=== PATIENT | female | born 2000 | race Caucasian/White ===

== ENCOUNTER 2019-12-03 22:55 | Inpatient (IN) ==
[2019-12-03] MEDS ORDERED: ACETAMINOPHEN 1,000 MG/100 ML VIAL IV STA (23:07)
[2019-12-03] MEDS ORDERED: SODIUM CHLORIDE 0.9% 1000ML 1,000 ML IV ONE (23:07)
[2019-12-03] MEDS ORDERED: PIPERACILL/TAZOBAC CONSULT ACTIVE PRN (23:13)
[2019-12-03] MEDS ORDERED: PIPERACILLIN/TAZOBACTAM 4.5 GM/120 ML BAG IV ONE (23:13)
--- NOTE | 2019-12-03 23:24 | Emergency Department Note ---
History of Present Illness General Chief complaint: Abdominal Pain Stated complaint: ABDOMINAL PAIN History of Present Illness Maximum Pain Intensity: 10 This 19-year-old presents to the ER complaining of abdominal pain for the past 3 days Location: Lower abdomen Quality: Painful Severity: Moderate Duration: 3 days Timing: Started 3 days ago Context: Symptoms got much worse and patient came in Modifying factors: better with nothing; worse with activity Patient states she had a ruptured ovarian cyst before. This feels different. Patient complains of fevers. Patient denies chest pain, dyspnea, cough, congestion, flulike illness, urinary symptoms. She still has her appendix. She was moved up here from [place] and is living with her uncle. Home Medications Home Medications Medication Instructions Recorded Confirmed Type No Known Home Medications 12/03/19 12/03/19 History Allergies Allergy/AdvReac Type Severity Reaction Status Date / Time No Known Allergies Allergy Unverified 12/03/19 23:29 Past Med/Surg History Medical History Ovarian cyst Surgical History No pertinent past surgical history Social History Smoking Status: Current every day smoker Tobacco Type: Cigarettes Preferred Language: Bulgarian Feels Safe at Home: Yes Review of Systems A total of 10 systems reviewed and were otherwise negative Physical Exam Vital Signs Vital Signs - 24 hr 12/03/19 22:58 12/04/19 00:11 12/04/19 00:26 Temperature 39.2 C H 37.5 C Temperature Source Oral Oral Pulse Rate 109 H Pulse Rate [Right Finger] 88 Pulse Rate from SpO2 Sensor Respiratory Rate 16 20 Blood Pressure 100/47 L Blood Pressure [Left Arm] 123/61 Blood Pressure Mean 64 Blood Pressure Mean [Left Arm] 81 Blood Pressure Position [Left Arm] Sitting Pulse Oximetry 97 99 Oxygen Delivery Method Room Air Room Air Sepsis Recent Fever Within 48 Hours Yes Sepsis New/Unexplained Change in Mental Status No Sepsis Action Taken by Nursing No Action Required 12/04/19 01:02 Temperature Temperature Source Pulse Rate 84 Pulse Rate [Right Finger] Pulse Rate from SpO2 Sensor 86 Respiratory Rate 16 Blood Pressure 107/43 L Blood Pressure [Left Arm] Blood Pressure Mean 67 Blood Pressure Mean [Left Arm] Blood Pressure Position [Left Arm] Pulse Oximetry 99 Oxygen Delivery Method Room Air Sepsis Recent Fever Within 48 Hours Sepsis New/Unexplained Change in Mental Status Sepsis Action Taken by Nursing VITALS: Vitals are noted on the nurse's note and reviewed by myself. Vital signs febrile. GENERAL: White female who appears in pain and ill-appearing. SKIN: The skin was without rashes, erythema, edema, or bruising. There is no tenting of the skin. Capillary reflex less than 2 seconds. HEAD: Normocephalic atraumatic. EARS: External auditory canals clear, tympanic membranes pearly hopkins without erythema or effusion bilaterally. EYES: Pupils equal round and reactive to light and accommodation. Conjunctivae without injection, sclerae without icterus. Extraocular movements intact. NOSE: Patent, turbinates without inflammation or discharge. No sinus tenderne ss. MOUTH: Mucous membranes mildly dry. Pharynx without erythema or exudate. Uvula midline. Airway patent. Tongue does not deviate. NECK: Supple without nuchal rigidity. No lymphadenopathy. No thyromegaly. Cervical spine is nontender. No JVD. HEART: Regular rate and rhythm LUNGS: Clear to auscultation bilaterally without wheezes, rales or rhonchi. No retractions or accessory muscle use. ABDOMEN: Positive bowel sounds x 4. Normal tympanic percussion. Soft, tender to palpation lower abdomen, without masses or organomegaly. Mendez sign negative. No guarding or rebound tenderness. No CVA tenderness exam: Yellow-white discharge in the vault, erythematous cervix, cultures take n and sent, CMT tenderness, right and next tenderness. Muffler Installer present MUSCULOSKELETAL: No muscle atrophy, erythema, or edema noted. NEURO: Patient was alert and oriented to person place and time. Normal sensation to light and sharp touch. No focal neurological deficits. Course Administered Medications Doxycycline Hyclate 100 mg/ (Dextrose) 110 mls @ 50 mls/hr IV NOW STA Stop: 12/04/19 02:33 Last Admin: 12/04/19 01:03 Dose: 50 mls/hr Documented by: [id number] Discontinued Medications Sodium Chloride (Nss 1000ml) 1,000 mls @ 999 mls/hr IV .[id number] ONE Stop: 12/04/19 00:07 Last Infusion: 12/04/19 00:20 Dose: 0 mls/hr Documented by: [id number] Admin: 12/03/19 23:26 Dose: 999 mls/hr Documented by: [id number] Acetaminophen (Ofirmev) 1,000 mg in 100 mls @ 400 mls/hr IV NOW STA Stop: 12/03/19 23:21 Last Infusion: 12/03/19 23:43 Dose: 0 mls/hr Documented by: [id number] Admin: 12/03/19 23:26 Dose: 400 mls/hr Documented by: [id number] Piperacillin Sod/Tazobactam Sod (Zosyn) 4.5 gm in 120 mls @ 240 mls/hr IV NOW ONE Stop: 12/03/19 23:42 Last Infusion: 12/04/19 00:34 Dose: 0 mls/hr Documented by: [id number] Admin: 12/04/19 00:00 Dose: 240 mls/hr Documented by: [id number] Ioversol (Ioversol 100ml) 91 ml IV ONCE ONE Stop: 12/03/19 23:41 Last Admin: 12/03/19 23:40 Dose: 1 ml Documented by: [id number] Medical Decision Making Medical Records Attestation: I reviewed the patient's medical records. Home Medications Current Medication List: was personally reviewed by me Laboratory Data Attestation: I reviewed the patient's lab results. Result diagrams: 12/03/19 23:15 12/03/19 23:15 Lab Results 12/03/19 12/03/19 12/03/19 Range/Units 23:15 23:15 23:15 WBC 17.54 H (4.8-10.8) K/uL RBC 4.19 L (4.2-5.4) M/uL Hgb 6.4 L* (12.0-16.0) g/dL Hct 24.6 L (37-47) % MCV 58.7 L (80-100) fL MCH 15.3 L (25-34) pg MCHC 26.0 L (32-36) g/dL RDW Std Deviation 39.2 (36.4-46.3) fL RDW Coeff of Moises 18.4 H (11.5-14.5) % Plt Count 524 H (130-400) K/uL MPV 9.6 (7.4-10.4) fL Immature Gran % (Auto) 0.2 % Neut % (Auto) 85.8 % Lymph % (Auto) 7.5 % [place] % (Auto) 6.2 % Eos % (Auto) 0.1 % Baso % (Auto) 0.2 % Neut # (Auto) 15.06 H (1.4-6.5) K/uL Lymph # (Auto) 1.31 (1.2-3.4) K/uL [place] # (Auto) 1.09 H (0.11-0.59) K/uL Eos # (Auto) 0.01 (0-0.5) K/uL Baso # (Auto) 0.03 (0-0.2) K/uL Immature Gran # (Auto) 0.04 H (0.00-0.02) K/uL Hypochromasia Present Microcytosis Present PT 12.3 H (9.0-12.0) Seconds INR 1.2 H (0.9-1.1) APTT 28.2 (21.0-31.0) Seconds PTT Ratio 1.0 Sodium 140 (136-145) mmol/L Potassium 3.5 (3.5-5.1) mmol/L Chloride 109 H (98-107) mmol/L Carbon Dioxide 23 (21-32) mmol/L Anion Gap 8.0 (3-11) BUN 11 (7-18) mg/dl Creatinine 0.84 (0.6-1.2) mg/dl Est Cr Clr Drug Dosing 110.7 ml/min Est GFR ( Amer) 115.1 Est GFR (Non-Af Amer) 99.4 BUN/Creatinine Ratio 13.5 (10-20) Glucose 112 H (70-99) mg/dl Lactate (0.4-2.0) mmol/L Calcium 8.9 (8.5-10.1) mg/dl Magnesium 1.7 L (1.8-2.4) mg/dl Total Bilirubin 0.4 (0.2-1) mg/dl AST 9 L (15-37) U/L ALT 11 L (12-78) U/L Alkaline Phosphatase 66 (45-117) U/L Total Protein 7.3 (6.4-8.2) gm/dl Albumin 3.6 (3.4-5.0) gm/dl Globulin 3.7 (2.5-4.0) gm/dl Albumin/Globulin Ratio 1.0 (0.9-2) Urine Color Urine Appearance (Clear) Urine pH (4.5-7.5) Ur Specific [place] (1.000-1.030) Urine Protein (Negative) POC Urine Protein (Negative) Urine Glucose (UA) (Negative) POC Ur Glucose (UA) (Normal) Urine Ketones (Negative) POC Urine Ketones (Negative) Urine Blood (Negative) POC Urine Blood (Negative) Urine Nitrite (Negative) POC Urine Nitrite (Negative) Urine Bilirubin (Negative) Urine Urobilinogen (Negative) Ur Leukocyte Esterase (Negative) POC U Leukocyte Esteras (Negative) POC Ur Test (NEG) Urine Opiates Screen (Neg) Ur Methadone, Qual (Neg) Urine Barbiturates (Neg) Ur Phencyclidine (PCP) (Neg) U Amphetamin/Meth Scrn (Neg) MDMA (Ecstasy) Screen (Neg) U Benzodiazepines Scrn (Neg) Ur Cocaine Metabolite (Neg) U Marijuana (THC) Screen (Neg) Blood Type Antibody Screen Crossmatch 12/03/19 12/03/19 12/03/19 Range/Units 23:15 23:15 23:15 WBC (4.8-10.8) K/uL RBC (4.2-5.4) M/uL Hgb (12.0-16.0) g/dL Hct (37-47) % MCV (80-100) fL MCH (25-34) pg MCHC (32-36) g/dL RDW Std Deviation (36.4-46.3) fL RDW Coeff of Moises (11.5-14.5) % Plt Count (130-400) K/uL MPV (7.4-10.4) fL Immature Gran % (Auto) % Neut % (Auto) % Lymph % (Auto) % [place] % (Auto) % Eos % (Auto) % Baso % (Auto) % Neut # (Auto) (1.4-6.5) K/uL Lymph # (Auto) (1.2-3.4) K/uL [place] # (Auto) (0.11-0.59) K/uL Eos # (Auto) (0-0.5) K/uL Baso # (Auto) (0-0.2) K/uL Immature Gran # (Auto) (0.00-0.02) K/uL Hypochromasia Microcytosis PT (9.0-12.0) Seconds INR (0.9-1.1) APTT (21.0-31.0) Seconds PTT Ratio Sodium (136-145) mmol/L Potassium (3.5-5.1) mmol/L Chloride (98-107) mmol/L Carbon Dioxide (21-32) mmol/L Anion Gap (3-11) BUN (7-18) mg/dl Creatinine (0.6-1.2) mg/dl Est Cr Clr Drug Dosing ml/min Est GFR ( Amer) Est GFR (Non-Af Amer) BUN/Creatinine Ratio (10-20) Glucose (70-99) mg/dl Lactate 1.9 (0.4-2.0) mmol/L Calcium (8.5-10.1) mg/dl Magnesium (1.8-2.4) mg/dl Total Bilirubin (0.2-1) mg/dl AST (15-37) U/L ALT (12-78) U/L Alkaline Phosphatase (45-117) U/L Total Protein (6.4-8.2) gm/dl Albumin (3.4-5.0) gm/dl Globulin (2.5-4.0) gm/dl Albumin/Globulin Ratio (0.9-2) Urine Color Yellow Urine Appearance Clear (Clear) Urine pH 6.0 (4.5-7.5) Ur Specific [place] 1.027 (1.000-1.030) Urine Protein Negative (Negative) POC Urine Protein Trace H (Negative) Urine Glucose (UA) Negative (Negative) POC Ur Glucose (UA) Normal (Normal) Urine Ketones Negative (Negative) POC Urine Ketones 1+ (Small) H (Negative) Urine Blood Negative (Negative) POC Urine Blood Negative (Negative) Urine Nitrite Negative (Negative) POC Urine Nitrite Negative (Negative) Urine Bilirubin Negative (Negative) Urine Urobilinogen Negative (Negative) Ur Leukocyte Esterase Negative (Negative) POC U Leukocyte Esteras Trace H (Negative) POC Ur Test NEG (NEG) Urine Opiates Screen (Neg) Ur Methadone, Qual (Neg) Urine Barbiturates (Neg) Ur Phencyclidine (PCP) (Neg) U Amphetamin/Meth Scrn (Neg) MDMA (Ecstasy) Screen (Neg) U Benzodiazepines Scrn (Neg) Ur Cocaine Metabolite (Neg) U Marijuana (THC) Screen (Neg) Blood Type Antibody Screen Crossmatch 12/03/19 12/03/19 Range/Units 23:15 23:39 WBC (4.8-10.8) K/uL RBC (4.2-5.4) M/uL Hgb (12.0-16.0) g/dL Hct (37-47) % MCV (80-100) fL MCH (25-34) pg MCHC (32-36) g/dL RDW Std Deviation (36.4-46.3) fL RDW Coeff of Moises (11.5-14.5) % Plt Count (130-400) K/uL MPV (7.4-10.4) fL Immature Gran % (Auto) % Neut % (Auto) % Lymph % (Auto) % [place] % (Auto) % Eos % (Auto) % Baso % (Auto) % Neut # (Auto) (1.4-6.5) K/uL Lymph # (Auto) (1.2-3.4) K/uL [place] # (Auto) (0.11-0.59) K/uL Eos # (Auto) (0-0.5) K/uL Baso # (Auto) (0-0.2) K/uL Immature Gran # (Auto) (0.00-0.02) K/uL Hypochromasia Microcytosis PT (9.0-12.0) Seconds INR (0.9-1.1) APTT (21.0-31.0) Seconds PTT Ratio Sodium (136-145) mmol/L Potassium (3.5-5.1) mmol/L Chloride (98-107) mmol/L Carbon Dioxide (21-32) mmol/L Anion Gap (3-11) BUN (7-18) mg/dl Creatinine (0.6-1.2) mg/dl Est Cr Clr Drug Dosing ml/min Est GFR ( Amer) Est GFR (Non-Af Amer) BUN/Creatinine Ratio (10-20) Glucose (70-99) mg/dl Lactate (0.4-2.0) mmol/L Calcium (8.5-10.1) mg/dl Magnesium (1.8-2.4) mg/dl Total Bilirubin (0.2-1) mg/dl AST (15-37) U/L ALT (12-78) U/L Alkaline Phosphatase (45-117) U/L Total Protein (6.4-8.2) gm/dl Albumin (3.4-5.0) gm/dl Globulin (2.5-4.0) gm/dl Albumin/Globulin Ratio (0.9-2) Urine Color Urine Appearance (Clear) Urine pH (4.5-7.5) Ur Specific [place] (1.000-1.030) Urine Protein (Negative) POC Urine Protein (Negative) Urine Glucose (UA) (Negative) POC Ur Glucose (UA) (Normal) Urine Ketones (Negative) POC Urine Ketones (Negative) Urine Blood (Negative) POC Urine Blood (Negative) Urine Nitrite (Negative) POC Urine Nitrite (Negative) Urine Bilirubin (Negative) Urine Urobilinogen (Negative) Ur Leukocyte Esterase (Negative) POC U Leukocyte Esteras (Negative) POC Ur Test (NEG) Urine Opiates Screen Neg (Neg) Ur Methadone, Qual Neg (Neg) Urine Barbiturates Neg (Neg) Ur Phencyclidine (PCP) Neg (Neg) U Amphetamin/Meth Scrn Neg (Neg) MDMA (Ecstasy) Screen Neg (Neg) U Benzodiazepines Scrn Neg (Neg) Ur Cocaine Metabolite Neg (Neg) U Marijuana (THC) Screen Pos H (Neg) Blood Type O Positive Antibody Screen NEGATIVE Crossmatch See Detail Imaging Data Attestation: I personally reviewed and interpreted this imaging study as follows: MDM Narrative Prior records/ancillary studies reviewed. Triage Nursing notes reviewed. Additional history obtained from uncle. The patient's history was concerning for fever. Differential diagnosis: Etiologies such as intra-abdominal, ruptured appendix, pyelonephritis, PID, viral syndrome, otitis, pharyngitis, pneumonia, influenza, meningitis, urinary tract infection, sepsis, bacteremia, as well as others were entertained. Physical examination: As above ER treatment provided: An order was placed for continuous cardiac monitoring. The monitor shows a rate of 60-1 20 with a sinus rhythm. IV fluids, Tylenol, Zosyn, patient was typed and crossed and transfused 2 units of blood On reassessment the patient felt better. Diagnostics interpreted by me: ECG: Ordered for sepsis EKG: Normal sinus, normal intervals, no acute ST-T wave changes. Impression normal sinus rhythm interpreted by myself I think arrhythmia is unlikely. EKG shows normal sinus rhythm with no interval abnormalities such as QT prolongation or WPW. There are no findings to suggest Brugada syndrome. Cardiac monitoring in the emergency department reveals no tachycardic or bradycardic dysrhythmia. Hypertrophic cardiomyopathy was consider ed but there are no clear historical elements pointing toward this. EKG is not suggestive. The QRS voltage is not extremely large and there are no suggestive Q waves. The labs revealed low H&H. Patient was consented to blood transfusion. She was typed and crossmatched. She was written for 2 units of blood. Blood cultures pending Vaginal cultures pending, patient is requesting for HIV and syphilis testing. This is added on. Trichomonas is negative Imaging studies: CT ABDOMEN & PELVIS With Contrast: Normal appendix. Small volume complex free fluid within the pelvis. Most likely physiologic. No suspicious adnexal lesion. The pelvic small bowel is mildly thick-walled, likely reactive to the free fluid however nonspecific enteritis could cause a similar appearance. Mild splenomegaly. Liver, gallbladder, pancreas, and kidneys are unremarkable. Radiologist: Shashank Rosenberg MD US PELVIS: Transabdominal only images. Normal uterus and endometrial complex. Complex cystic lesion on the right ovary measuring 2.2 x 2.6 x 2.3 cm, corpus luteal cyst versus a hemorrhagic cyst. Follicular changes in the left ovary. No suspicious adnexal lesion on the left. Physiologic free fluid within the pelvis with internal complexity. Radiologist: Shashank Rosenberg MD Chest x-ray with no acute consolidation, pneumothorax or free air per my interpretation Consultation: A consultation was placed with OB Dr. Heller. The case was discussed and diagnostics were reviewed. He recommends medical admission and consult him. He agrees with antibiotics. I spoke with Dr. Holcomb and he will evaluate the patient for admission. The patient was evaluated in the ER for further treatment. This appears to be consistent with PID, sepsis and anemia. Patient is given 2 units of blood. She is given broad-spectrum antibiotics. I did verify the antibiotics with the pharmacist for PID coverage. Cultures are pending. Vaginal cultures are pending. Patient is requesting HIV and syphilis screen. These were ordered. She is agreeable to treatment plan of admission. By the evaluation outlined above emergent etiologies such as otitis, pharyngitis, pneumonia, meningitis, urinary tract infection, bacteremia, as well as others were deemed relatively unlikely. The pt informed about the findings as listed above. All questions were answered and pleased with the treatment. The chart was completed utilizing [employer] Speech voice recognition software. Grammatical errors, random word insertions, pronoun errors, and incomplete sentences are an occassional consequence of this system due to software limitations, ambient noise, and hardware issues. Any formal questions or concerns about the content, text, or information contained within the body of this dictation should be directly addressed to the physician speech pathologist assistant for clarification. Impression & Plan Acute pelvic inflammatory disease (PID), Sepsis, Anemia Discharge Plan Visit Data Chief Complaint: Abdominal Pain Stated Complaint: ABDOMINAL PAIN ED Provider: Norris Velez ED Midlevel Provider: Sil Oquendo Discharge Problem: Acute pelvic inflammatory disease (PID), Sepsis, Anemia Patient Disposition: Admitted As Inpatient Condition: Fair Forms Stand Alone Forms: [employer] Prescriptions Prescriptions: No Action No Known Home Medications RF: 0 Referrals Referrals: PCP,NO [Primary Care Provider] -
[2019-12-03] MEDS ORDERED: IOVERSOL 100ml IV ONE (23:40)
[2019-12-03 23:44] LABS: POC Urine Blood Negative (Negative); POC Urine Glucose Normal (Normal); POC Urine Ketones 1+ (Small) (Negative); POC Urine Leukocytes Trace (Negative); POC Urine Nitrite Negative (Negative); POC Urine Protein Trace (Negative)
[2019-12-03 23:46] LABS: Appearance Urine Clear (Clear); Bilirubin Urine Negative (Negative); Blood Urine Negative (Negative); Color Urine Yellow; Glucose Urine UA Negative (Negative); Ketones Urine Negative (Negative); Leukocyte Esterase Urine Negative (Negative); Nitrite Urine Negative (Negative); Protein Urine Negative (Negative); Specific Gravity Urine 1.027 (1.000-1.030); Urobilinogen Urine Negative (Negative)
[2019-12-03 23:49] LABS: INR 1.2 (0.9-1.1); Partial Thromboplastin Time 28.2 Seconds (21.0-31.0); Prothrombin Time 12.3 Seconds (9.0-12.0)
[2019-12-03 23:52] LABS: Hematocrit (blood only) 24.6 % (37-47); Hemoglobin 6.4 g/dL (12.0-16.0); Mean Corpuscular Hemoglobin 15.3 pg (25-34); Mean Corpuscular Volume 58.7 fL (80-100); Mean Platelet Volume 9.6 fL (7.4-10.4); Platelet Count 524 K/uL (130-400); RDW Coefficient of Variation 18.4 % (11.5-14.5); RDW Standard Deviation 39.2 fL (36.4-46.3); Red Blood Count 4.19 M/uL (4.2-5.4); White Blood Count 17.54 K/uL (4.8-10.8)
[2019-12-04 00:02] LABS: Albumin Level 3.6 gm/dl (3.4-5.0); BUN Creatinine Ratio 13.5 (10-20); Calcium 8.9 mg/dl (8.5-10.1); Creatinine Clr Calc Pharmacy 110.7 ml/min; Est GFR (African American) 115.1; Est GFR (Non-African American) 99.4; Magnesium 1.7 mg/dl (1.8-2.4); Potassium 3.5 mmol/L (3.5-5.1)
[2019-12-04] MEDS ORDERED: SODIUM CHLORIDE 0.9% 250 ML IV PRN ×3 (00:02→02:50)
[2019-12-04 00:05] LABS: Bilirubin,Total 0.4 mg/dl (0.2-1); Globulin 3.7 gm/dl (2.5-4.0); Total Protein 7.3 gm/dl (6.4-8.2)
[2019-12-04 00:08] LABS: Basophils # (auto) 0.03 K/uL (0-0.2); Basophils % (auto) 0.2 %; Eosinophils # (auto) 0.01 K/uL (0-0.5); Eosinophils % (auto) 0.1 %; Hypochromasia Present; Immature Granulocytes # (auto) 0.04 K/uL (0.00-0.02); Immature Granulocytes % (auto) 0.2 %; Lymphocytes # (auto) 1.31 K/uL (1.2-3.4); Lymphocytes % (auto) 7.5 %; Microcytosis Present; Monocytes # (auto) 1.09 K/uL (0.11-0.59); Monocytes % (auto) 6.2 %; Neutrophils # (auto) 15.06 K/uL (1.4-6.5); Neutrophils % (auto) 85.8 %
[2019-12-04] MEDS ORDERED: DOXYCYCLINE HYCLATE 100 MG in DEXTROSE 5% 100 ML IV STA (00:22)
[2019-12-04 01:10] LABS: Amphetamines+Metham, Urine Neg (Neg); Barbiturates, Urine Neg (Neg); Benzodiazepine, Urine Neg (Neg); Cocaine, Urine Neg (Neg); MDMA (Ecstacy), Urine Neg (Neg); Methadone, Urine Neg (Neg); Opiate, Urine Neg (Neg); Phencyclidine, Urine Neg (Neg)
[2019-12-04] MEDS ORDERED: MoRPHine SULFATE 4 MG/ML 1 ML CARP\\VIAL IV STA (01:52)
--- NOTE | 2019-12-04 02:08 | History & Physical Report ---
Date of Service December 04, 2019 Assessment & Plan (1) Acute pelvic inflammatory disease (PID): Pt is a 19yo with a PMHx of bilateral ovarian cysts and drug abuse who presents with a 4 day history of lower abdominal pain and fever as high as 39.2. Abdominal pain in the setting of Enteritis vs. Pelvic inflammatory disease -Pt with 4 day Hx of abd pain, associated with fevers and nausea. Notes high risk sexual behavior. -Temp 39.2 on admission, WBC >17,000, Hgb of 6.4 with MCV of 58.7, platelets 524,000, urine NEGATIVE -UA unremarkable -CT abdomen/pelvis noted some complex free fluid and mild thickening of the pelvic small bowel, mild splenomegaly -Pelvic US showed normal uterus and endometrial complex, R ovary complex cyst and follicular changes in L ovary. -RPR, G/C and HIV ordered by ED and pending -Trichomonas prep, cervical gram stain and culture ordered by ED and pending -Blood cultures ordered by ED pending -Received Zosyn and doxycycline doses in the ED -Will treat with IM Rocephin x1, doxycycline IV 100mg BID, Flagyl 500mg IV BID -NSS @ 125mls/hr, stop after 2 bags -Tylenol 1000mg q8h PRN, Toradol 15mg IV q6h PRN for pain -Zofran 4mg q6h IV PRN for nausea -consult placed to [facility] -will admit to med/surg with tele Anemia -Hgb of 6.4 noted on admission with MCV of 58 -2U of pRBCs ordered for transfusion by the ED -given microcytosis, may benefit from iron studies/workup for outpatient treatment -re-check H/H with AM labs post transfusion Hypomagnesemia -Mag of 1.7 on admission -Mag ox 400mg qAM ordered Elevated INR -Noted INR of 1.2 -Normal AST/ALT/Alk phos/total bili -continue to monitor Hx of drug abuse, tobacco abuse -Pt states she moved from [place] about 6 weeks ago to "get away" from using meth and acid -admits she still uses marijuana even while in [place] -smokes 1ppd since age 13 -consider resources on discharge to aid with continued abstinence from recreational drug use FEN/GI: low fiber diet, NSS@125mls/hr DVT prophylaxis: Ambulation as tolerated CODE STATUS: Full Dispo: Med/Surg with tele (2) Anemia: (3) Ovarian cyst: (4) Hypomagnesemia: History of Present Illness Primary Care Provider: NO PCP Pt is a 19yo with a PMHx of bilateral ovarian cysts and drug abuse who presents with a 4 day history of lower abdominal pain and fever as high as 39.2. She states that the pain is mostly localized to the lower abdomen, but started as back pain. It is associated with nausea. Has also been having some white- yellowish discharge, denies any odor. Recently had her period. Last sexual encounter was a week ago. States that she moved to the [place] area to live with her uncle to get away from a Hx of drug abuse. States her drug of choice was methamphetamines, sometimes acid and daily marijuana which she still uses here. Also moved with her boyfriend of about 6 weeks who recently got out of assisted and whom she states "shoots" up. She is sexually active with him only since she moved to [place] about 6 weeks ago but she does not use protection. States she was sexually active with another partner right before moving to [place] 6 weeks ago and did not use protection then either. Is currently not on control. PMHx: Hx of bilateral ovarian cysts that she states ruptured about a year ago, at the same time PSH: None (was supposed to have cyst related surgery but states she never presented to have it done) Fam Hx: Ovarian cancer in aunt and grandmother Allergies: NKDA SH: Smoked 1ppd since age 13, periodic alcohol drinks, recreational drug use of daily marijuana. Hx of meth abuse and "acid" use. Lives with Uncle in [facility]. Recently moved from [place], where she used to attend school. Does not work currently. Her partner also abuses drugs, though she states she brought him to [facility] to help him abstain from use as well. Allergies Allergy/AdvReac Type Severity Reaction Status Date / Time No Known Allergies Allergy Unverified 12/03/19 23:29 Home Medications Home Medications Medication Instructions Recorded Confirmed Type No Known Home Medications 12/03/19 12/03/19 History Past Med/Surg History Medical History (Updated 12/04/19 @ 14:16 by Gemma Bolton MD) Anemia Dysmenorrhea Migraine with aura Ovarian cyst PID (acute pelvic inflammatory disease) Surgical History No pertinent past surgical history Social History Smoking Status: Current every day smoker Tobacco Type: Cigarettes Hx Alcohol Use: No Hx Substance Use: No Preferred Language: Yi Communication Ability: Effective Candy Maker Helper Required: No Beliefs That Will Affect Care: None Current Living Situation: Family Current Living Situation Comment: Uncle Feels Safe at Home: Yes Safety Concerns: Feels Safe At This Time Assistive Devices: None Review of Systems Constitutional: + fever, + chills, + sweats and + malaise Eyes: no worsening vision Ear, Nose, Mouth, Throat: no nasal congestion and no sore throat Respiratory: no cough and no dyspnea Cardiovascular: no chest pain, no palpitations and no edema Gastrointestinal: + abdominal pain and + nausea; no vomiting, no constipation, no diarrhea/loose stools and no blood in stools Genitourinary: + vaginal discharge; no dysuria, no hematuria and no vaginal odor Musculoskeletal: + back pain Neurologic: no tingling, no numbness, no headache(s) and no confusion Psychiatric: no confusion Physical Exam Physical Exam: General: Alert, oriented. No acute distress, laying in bed Skin: Tattoes noted Psych: Appropriate mood and affect Neuro: No gross deficits HEENT: NC/AT Chest: Nontender to palpation. CV: RRR, Normal s1, s2. No murmurs appreciated Resp: Breath sounds clear bilaterally, no increased effort of breathing. Abdomen: Soft, tender diffusely, nondistended. Some guarding. Extremities: No edema in lower extremities bilaterally. Results & Data Results & Data ([facility]) Vital Signs (Past 12 Hours) Vital Signs Temp Pulse Pulse Resp BP BP Pulse Ox 12/04/19 01:02 84 16 107/43 L 99 12/04/19 00:26 37.5 C 12/04/19 00:11 88 20 123/61 99 12/03/19 22:58 39.2 C H 109 H 16 100/47 L 97 Supervising Physician Co-Signing Physician Notes Attending addendum: I have physically seen this patient, have supervised the medical residents activities, and agree with the H&P unless as otherwise noted. Assessment and Plan: Pelvic inflammatory disease- Follow study results: RPR, GC, HIV, trichomonas, cervical Gram stain and culture and blood cultures. Empiric Zosyn and doxycycline IV given in the ED. Ceftriaxone, doxycycline and Flagyl IV NSS 125 mils per hour For 2 L Acetaminophen as needed mild pain or temperature Toradol 15 mg IV every 6 hours as needed moderate pain Zofran 4 mg IV every 6 hours as needed consult for GLASSWARE ENGRAVER Dr. Parada aware Anemia- Hemoglobin 6.4 upon admission To receive 2 units PRBCs ordered from the ED Repeat laboratories in a.m. Schizophrenia/bipolar disorder/polysubstance abuse history- History of meth and acid use in [place] where she moved from 6 weeks ago. Present tobacco use 1 PPD Has stopped Rx meds on her own Consult psychiatry Remainder of orders and notations as noted Resident Activity Tracking Resident Involvement: Resident Care Provided Care Provided: Adult Hospital Medicine
[2019-12-04] MEDS ORDERED: POLYETHYLENE (MIRALAX) 17 GM PACK PO PRN (02:36)
[2019-12-04] MEDS ORDERED: KETOROLAC TROMETHAMINE 15 MG/ML VIAL IV PRN (02:36)
[2019-12-04] MEDS ORDERED: cefTRIAXone SODIUM 250 MG/ML IM IM ONE (02:36)
[2019-12-04] MEDS ORDERED: cefTRIAXone SODIUM 250 MG in SYRINGE 0 ML IM ONE (03:00)
[2019-12-04] MEDS: SODIUM CHLORIDE 0.9% 1000ML 1,000 ML IV SCH ×2 (03:03→11:50)
[2019-12-04] MEDS: MAGNESIUM OXIDE 400 MG TAB PO SCH ×2 (03:16→08:17)
[2019-12-04] MEDS: ACETAMINOPHEN 500 MG TAB PO PRN ×2 (03:57→11:50)
[2019-12-04] MEDS ORDERED: metroNIDAZOLE 500 MG/100 ML BAG IV SCH (04:00)
[2019-12-04 07:03] LABS: Hematocrit (blood only) 23.7 % (37-47); Hemoglobin 6.6 g/dL (12.0-16.0); Mean Corpuscular Hgb Conc 27.8 g/dL (32-36); Mean Corpuscular Volume 60.9 fL (80-100); Mean Platelet Volume 8.9 fL (7.4-10.4); Nucleated RBC # (auto) 0.04 K/uL (0-0); Nucleated RBC % (auto) 0.2 %; Platelet Count 381 K/uL (130-400); RDW Coefficient of Variation 21.9 % (11.5-14.5); RDW Standard Deviation 42.7 fL (36.4-46.3); Red Blood Count 3.89 M/uL (4.2-5.4); White Blood Count 17.04 K/uL (4.8-10.8)
--- NOTE | 2019-12-04 07:11 | OB/GYN Consultation ---
Date of Consultation December 04, 2019 Assessment & Plan (1) Acute pelvic inflammatory disease (PID): Patient being treated appropriately at this stage for pelvic inflammatory disease consistent with a working diagnosis would recommend 48 hours of intravenous antibiotics if no improvement reassess with imaging continue to follow along with the team History of Present Illness Attending Physician: Nicolas Garcia MD History of Present Illness 19-year-old patient with an unfortunate history she has a history of pelvic inflammatory disease several years ago she presented with lower abdominal pain to the emergency room yesterday evening and fever at that time she noticed some discharge but the pain was excruciating had been building over the previous days and weeks. 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 The patient is sexually active with her boyfriend who was recently released from incarceration The patient recently moved from [place] to [facility] and states the drug scene she states Allergies Allergy/AdvReac Type Severity Reaction Status Date / Time No Known Allergies Allergy Unverified 12/03/19 23:29 Home Medications Home Medications Medication Instructions Recorded Confirmed Type No Known Home Medications 12/03/19 12/03/19 History Patient History Medical History Ovarian cyst Surgical History No pertinent past surgical history Social History Smoking Status: Current every day smoker Tobacco Type: Cigarettes Hx Alcohol Use: No Hx Substance Use: No Preferred Language: Thai Communication Ability: Effective Vp Production Required: No Beliefs That Will Affect Care: None Current Living Situation: Family Current Living Situation Comment: Uncle Feels Safe at Home: Yes Safety Concerns: Feels Safe At This Time Assistive Devices: None Physical Exam Gastrointestinal (Abdomen): normal bowel sounds, soft, nontender, no hepatosplenomegaly Results & Data ([facility]) Vital Signs (Past 12 Hours) Vital Signs Temp Pulse Pulse Resp BP BP Pulse Ox 12/04/19 05:30 99.3 F 82 18 115/63 99 12/04/19 04:30 99.5 F 81 16 113/68 98 12/04/19 04:00 98.4 F 87 20 109/61 99 12/04/19 03:45 100.0 F H 80 20 107/64 100 12/04/19 03:36 98.2 F 81 20 114/65 100 12/04/19 03:01 98.1 F 80 18 118/64 100 12/04/19 02:47 79 12/04/19 02:22 76 16 104/51 L 98 12/04/19 01:30 73 22 124/56 L 100 12/04/19 01:02 84 16 107/43 L 99 12/04/19 00:26 99.5 F 12/04/19 00:11 88 20 123/61 99 12/03/19 22:58 102.6 F H 109 H 16 100/47 L 97 PG Care Time/CCT Total # of Minutes Spent Total Time Spent with Patient: Total time spent is greater than 50% in coordination of care (as documented) at patient's floor/unit and/or counseling patient: Coding Level of Care Code 24382 Inpt Consult Level 3 Diagnoses Acute pelvic inflammatory disease (PID) N73.0
[2019-12-04 07:19] LABS: Basophils # (auto) 0.02 K/uL (0-0.2); Basophils % (auto) 0.1 %; Eosinophils # (auto) 0.02 K/uL (0-0.5); Eosinophils % (auto) 0.1 %; Hypochromasia Present; Immature Granulocytes # (auto) 0.04 K/uL (0.00-0.02); Immature Granulocytes % (auto) 0.2 %; Lymphocytes # (auto) 2.05 K/uL (1.2-3.4); Microcytosis Present; Monocytes # (auto) 1.28 K/uL (0.11-0.59); Monocytes % (auto) 7.5 %; Neutrophils # (auto) 13.63 K/uL (1.4-6.5); Neutrophils % (auto) 80.1 %; Polychromasia 1+
[2019-12-04 07:32] LABS: Albumin Level 2.8 gm/dl (3.4-5.0); BUN Creatinine Ratio 10.7 (10-20); Calcium 8.3 mg/dl (8.5-10.1); Creatinine Clr Calc Pharmacy 138.8 ml/min; Est GFR (African American) 145.6; Est GFR (Non-African American) 125.7; Potassium 3.4 mmol/L (3.5-5.1)
[2019-12-04 07:40] LABS: Albumin Globulin Ratio 0.8 (0.9-2); Bilirubin,Total 1.1 mg/dl (0.2-1); Globulin 3.3 gm/dl (2.5-4.0); Total Protein 6.1 gm/dl (6.4-8.2)
--- NOTE | 2019-12-04 07:51 | CT Scan Report ---
CT abd pelvis IV con only CLINICAL HISTORY: lower abd pain, fever, sepsis COMPARISON STUDY: None. TECHNIQUE: The patient was scanned in a dynamic helical fashion during intravenous and ministration 9 1 cc of Optiray 320 A dose lowering technique was utilized adhering to the principles of ALARA. CT DOSE: 359.69 mGy.cm FINDINGS: Lower chest: The heart is normal in size and configuration, without pericardial effusion. The lung ba ses and pleural spaces are clear. Liver: The contrast-enhanced liver is normal in size, contour, and attenuation. There is no intrahepa tic biliary ductal dilatation. The hepatic veins and portal veins are patent. Gallbladder: Unremarkable. Spleen: Normal in size and attenuation. Pancreas: Unremarkable. Adrenal glands: Unremarkable. Kidneys: No solid renal masses are visualized. There is an extrarenal pelvis on the left. There is no significant hydronephrosis. Bowel: There are fluid-filled loops of large and small bowel with multiple colonic air-fluid levels. There are mildly thickened pelvic small bowel loops. There are no transition zones indicate bowel obs truction. There is no evidence of acute diverticulitis. There is no evidence of acute appendicitis. Peritoneum: There is a small amount of pelvic ascites. There is mild infiltration of the lower pelvic peritoneal fat. Vasculature: The abdominal aorta is normal in course and caliber. Adenopathy: None. Pelvic viscera: There is mild bladder wall thickening. Skeletal structures: No destructive osseous lesions are seen. IMPRESSION: 1. No evidence of bowel obstruction. No evidence of free air 2. No evidence of acute appendicitis. No evidence of acute diverticulitis 3. Fluid-filled loops of large and small bowel. Pelvic small bowel wall thickening with associated as cites and infiltration of the adjacent fat. The findings are indicative of an enteritis, or pelvic in flammatory disease. 4. Mild bladder wall thickening ACT 112: Negative or not required by law. Electronically signed by: Martir Rosado M.D. 12/04/2019 7:49 AM
--- NOTE | 2019-12-04 08:05 | XRay Report ---
XR chest 1V portable CLINICAL HISTORY: SEPSIS COMPARISON STUDY: No previous studies for comparison. FINDINGS: The cardiac and mediastinal contours are normal. There is no evidence of focal pulmonary co nsolidation. There is no evidence of failure. No pleural effusions are visualized.[ IMPRESSION: No active disease in the chest. ACT 112: Negative or not required by law. Electronically signed by: Martir Rosado M.D. 12/04/2019 8:04 AM
--- NOTE | 2019-12-04 08:05 | Ultrasound Report ---
ULTRASOUND OF THE PELVIS CLINICAL HISTORY: Fever. Pelvic pain. COMPARISON STUDY: Pelvic CT performed 12/03/2019. TECHNIQUE: Real-time, grayscale, and color flow sonography of the pelvis is performed transabdominall y. Images are reviewed in the transverse and longitudinal planes. The patient declined the endovagina l examination. FINDINGS: Uterus: The uterus is normal in size and echotexture, measuring 8.4 x 3.0 x 4.0 cm. Endometrium: The endometrium is normal in appearance, and the endometrial stripe is normal in thickne ss measuring up to 0.7 cm. Ovaries: The ovaries appear mildly enlarged but are otherwise normal in morphology. The right ovary m easures 6.0 x 2.0 x 3.3 cm and the left ovary measures 6.8 x 4.8 x 2.7 cm. There are bilateral ovaria n follicles. A 2.6 cm hemorrhagic follicle is noted in the right ovary. Normal Doppler waveforms are shown within both ovaries. Pelvis: There is a small volume of complex free fluid in the cul-de-sac. No concerning adnexal lesion is seen. IMPRESSION: 1. A 2.6 cm complex/hemorrhagic follicle is noted in the right ovary. 2. There is a small volume of complex free fluid in the cul-de-sac. 3. No uterine abnormality is identified. ACT 112: Negative or not required by law. Electronically signed by: Reid Pickard M.D. 12/04/2019 8:03 AM
--- NOTE | 2019-12-04 10:41 | Electrocardiogram Report ---
Test Reason : Blood Pressure : / mmHG Vent. Rate : 089 BPM Atrial Rate : 089 BPM P-R Int : 116 ms QRS Dur : 078 ms QT Int : 358 ms P-R-T Axes : 057 061 022 degrees QTc Int : 435 ms Normal sinus rhythm Normal ECG No previous ECGs available Confirmed by Cole Jimenez ([id number]) on 12/04/2019 10:40:54 AM Referred By: REFERRED SELF Confirmed By:Cole Jimenez
[2019-12-04] MEDS ORDERED: ONDANSETRON 4 MG OD TAB PO PRN (11:36)
[2019-12-04] MEDS ORDERED: MoRPHine SULFATE 2 MG/ML CARP IV STA (12:09)
[2019-12-04] MEDS: cefOXitin 2,000 MG in DEXTROSE 5% 50 ML IV SCH ×3 (12:40→23:44)
[2019-12-04 12:59] LABS: Hematocrit (blood only) 28.9 % (37-47); Hemoglobin 8.3 g/dL (12.0-16.0)
[2019-12-04] MEDS ORDERED: DOXYCYCLINE HYCLATE 100 MG in DEXTROSE 5% 100 ML IV SCH (13:00)
[2019-12-04] MEDS: DOXYCYCLINE HYCLATE 100 MG in DEXTROSE 5% 100 ML IV SCH (13:20)
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
[2019-12-04] MEDS ORDERED: traMADol HCL 50 MG TABLET PO PRN (13:52)
[2019-12-04] MEDS: KETOROLAC TROMETHAMINE 15 MG/ML VIAL IV SCH ×3 (14:17→23:44)
[2019-12-04] MEDS ORDERED: IRON SUCROSE 200 MG in 0.9 % SODIUM CHLORIDE 100 ML IV ONE (14:30)
--- NOTE | 2019-12-04 19:17 | Billing Data ---
Date of Service December 04, 2019 Coding Level of Care Code 06823 Initial Inpt Care Lvl 3
[2019-12-04] MEDS: ACETAMINOPHEN 500 MG TAB PO SCH (20:25)
[2019-12-04] MEDS: ONDANSETRON INJ 2 MG/ML 2 ML VIAL IV PRN (20:37)
[2019-12-05] MEDS: DOXYCYCLINE HYCLATE 100 MG in DEXTROSE 5% 100 ML IV SCH ×2 (01:44→15:26)
[2019-12-05] MEDS: ACETAMINOPHEN 500 MG TAB PO SCH ×3 (05:48→22:53)
[2019-12-05] MEDS: KETOROLAC TROMETHAMINE 15 MG/ML VIAL IV SCH ×3 (05:49→18:34)
[2019-12-05] MEDS: cefOXitin 2,000 MG in DEXTROSE 5% 50 ML IV SCH ×3 (05:52→18:01)
--- NOTE | 2019-12-05 07:50 | Gynecologic Progress Note ---
Date of Service Patient approximately 36 hours into her IV antibiotic treatment interviewed the patient this morning she was somewhat sleepy however less somnolent than the la st interview. She states her pain is improved since admission she states that she does still have pain off and on in her left side somewhat higher than her pelvis she has no vaginal discharge at this time but she notes she does not feel feverish December 05, 2019 Assessment & Plan (1) Acute pelvic inflammatory disease (PID): Patient with multiple medical problems and history and current history of drug abuse. With respect to her pelvic inflammatory disease clinically she is somewhat better her pain is less her temperature has stabilized and she is no longer afebrile would recommend repeating white blood cell count this morning if this is declining and she continues to improve would continue IV antibiotics u ntil the morning of December 05 and then reassess at that time by the [employer] team in the morning Admission and Anticipated Discharge Date Admission Date: December 04, 2019 Physical Exam Gastrointestinal (Abdomen): normal bowel sounds, soft, nontender, no hepatosplenomegaly Results & Data ([facility]) Vital Signs (Past 12 Hours) Vital Signs Temp Pulse Pulse Resp BP BP Pulse Ox 12/05/19 07:31 85 12/05/19 07:15 99.0 F 89 18 145/67 H 98 12/05/19 03:00 99.0 F 68 16 108/64 98 12/04/19 22:20 68 12/04/19 22:00 99.0 F 81 18 130/72 97 12/04/19 19:59 97.7 F 58 L 20 119/70 100 PG Care Time/CCT Total # of Minutes Spent Total Time Spent with Patient: Total time spent is greater than 50% in coordination of care (as documented) at patient's floor/unit and/or counseling patient: Coding Level of Care Code 84900 Subseq Hosp Care Lvl 2 Diagnoses Acute pelvic inflammatory disease (PID) N73.0
[2019-12-05] MEDS: MAGNESIUM OXIDE 400 MG TAB PO SCH (08:47)
[2019-12-05 10:04] LABS: Hematocrit (blood only) 29.9 % (37-47); Hemoglobin 8.6 g/dL (12.0-16.0); Mean Corpuscular Hemoglobin 18.1 pg (25-34); Mean Corpuscular Hgb Conc 28.8 g/dL (32-36); Mean Corpuscular Volume 62.9 fL (80-100); Mean Platelet Volume 9.4 fL (7.4-10.4); Platelet Count 399 K/uL (130-400); RDW Coefficient of Variation 23.8 % (11.5-14.5); RDW Standard Deviation 52.5 fL (36.4-46.3); Red Blood Count 4.75 M/uL (4.2-5.4); White Blood Count 20.02 K/uL (4.8-10.8)
[2019-12-05 10:20] LABS: BUN Creatinine Ratio 13.6 (10-20); Calcium 8.9 mg/dl (8.5-10.1); Creatinine Clr Calc Pharmacy 119.2 ml/min; Est GFR (Non-African American) 108.7; Potassium 3.8 mmol/L (3.5-5.1)
[2019-12-05 10:25] LABS: Anisocytosis Present; Basophils # (auto) 0.02 K/uL (0-0.2); Basophils % (auto) 0.1 %; Eosinophils # (auto) 0.03 K/uL (0-0.5); Eosinophils % (auto) 0.1 %; Hypochromasia Present; Immature Granulocytes # (auto) 0.08 K/uL (0.00-0.02); Immature Granulocytes % (auto) 0.4 %; Lymphocytes # (auto) 1.34 K/uL (1.2-3.4); Lymphocytes % (auto) 6.7 %; Microcytosis Present; Monocytes # (auto) 1.64 K/uL (0.11-0.59); Monocytes % (auto) 8.2 %; Neutrophils # (auto) 16.91 K/uL (1.4-6.5); Neutrophils % (auto) 84.5 %; Polychromasia 1+
[2019-12-05 10:27] LABS: Ferritin 204.2 ng/ml (8-388)
[2019-12-05] MEDS: ONDANSETRON INJ 2 MG/ML 2 ML VIAL IV PRN ×2 (10:47→18:34)
[2019-12-05] MEDS: IRON SUCROSE 300 MG in SODIUM CHLORIDE 0.9% 250 ML IV ONE ×2 (10:47→18:36)
[2019-12-05] MEDS ORDERED: ALPRAZolam 0.5 MG TABLET PO PRN (12:23)
--- NOTE | 2019-12-05 12:29 | Hospitalist Progress Note ---
Date of Service December 05, 2019 Assessment & Plan (1) Acute pelvic inflammatory disease (PID): Pt is a 19yo with a PMHx of bilateral ovarian cysts and drug abuse admitted for abdominal pain and fever of Tmax 39.2, with concern for PID. Pelvic Inflammatory Disease: - Pt on admission with 4 day Hx of abd pain, associated with fevers and nausea. Notes high risk sexual behavior. - In ER with yellow-white discharge in vaginal vault, erythematous cervix, with cervical motion tenderness and right adnexal tenderness. - Temp 39.2 on admission, WBC >17,000, Hgb of 6.4 with MCV of 58.7, urine negative. - CT abdomen/pelvis noted some complex free fluid and mild thickening of the pelvic small bowel, mild splenomegaly. - Pelvic US showed normal uterus and endometrial complex, R ovary complex hemorrhagic cyst and follicular changes in L ovary. - HIV negative, GC/CL and syphilis serology pending. - Trichomonas cervical swab negative, cervical gram stain and culture positive for Gardnerella vaginalis and Anabel species. - Blood cultures negative to date. - WBC count continues to increase, 20.02 today. - Received IM ceftriaxone x1, doxy, flagyl in ED. - While admitted will continue Cefoxitin 2g Q6H + Doxy 100 IV Q12H for empiric treatment of PID. Transition to oral Abx following 48 hours, pending patient improvement. - Monitor CBC daily as well as changes in symptoms; while patient has worsening leukocytosis today, patient's pain significantly decreased today. - Zofran prn nausea. - Tylenol 1000 mg sched for pain, Toradol 15 mg IV Q6 staci pain, 50 mg Tramadol Q6h PRN severe pain - Ear Machine Operator consult: empiric abx for at least 48 hours, otherwise no changes. - Will provide patient with my contact information for discharge, as she is without [facility] care provider. Iron deficiency anemia: - Hgb of 6.4 noted on admission with MCV of 58. - Patient notes long-standing history of menorrhagia, and was advised in the past to take OCP in order to better regulate and shorten her cycles but was lost to follow up. - 2U of pRBCs ordered for transfusion by the ED. - Repeat H/H following 2U was 8.3, stable today at 8.6. - Iron level low, ferritin and TIBC normal. - Have ordered Venofer while admitted, and will advised patient to take iron supplements in outpatient setting. History of Bipolar Disorder/?schizophrenia: - Patient reports having been on "some medications off and on" but cannot recall names. - At patient's consent, called mother who will look in her records and will await my call tomorrow. - Can consider restarting medication here while admitted and having close follow up with myself for primary care services. Hx of drug abuse, tobacco abuse - Pt states she moved from [place] about 6 weeks ago to "get away" from using meth and acid. - Patient displayed off affect yesterday during afternoon visit by team, while un-named male was present in the room. - Euthymic today and has not left her room. - Admits to marijuana use. - Smokes 1 ppd since age 13. - Encouraged continued abstinence from recreational drugs, smoking cessation counseling. Hypomagnesemia - Mag of 1.7 on admission. - Mag ox 400mg qAM ordered. Elevated INR: - Noted INR of 1.2 incidentally on admission labwork. - Normal AST, ALT, Alk Phos, T bili. - No history alcohol abuse. - Repeat INR for tomorrow AM with morning labs. FEN/GI: low fiber diet DVT prophylaxis: Ambulation as tolerated CODE STATUS: Full Dispo: Med/Surg with Telemetry (2) Anemia: (3) Ovarian cyst: (4) Hypomagnesemia: Admission and Anticipated Discharge Date Admission Date: December 04, 2019 Supervising Physician Co-Signing Physician Notes Resident Physician Supervision Note: I independently interviewed and examined the patient and verified the perkins history and physical, reviewed labs and image studies, discussed the case with the resident Dr. Talbot and agree with the findings and care plan. Subjective Patient without acute events overnight. Still complaining of abdominal pain specifically on the left side this AM, though decreased from yesterday. Desired discharge home because of "extreme fear of needles", but was amenable to staying after discussing need for IV antibiotics for presumed pelvic inflammatory disease. I explained that untreated PID can cause sepsis and , as well as negatively impact fertility in her future. She was then willing to stay. States that she felt "sweaty and hot" overnight, but no measured fevers by nursing notes. No complaints of nausea or vomiting, no dysuria or hematuria. No shortness of breath or chest pain. States she has been on medications for bipolar disorder in the past, but does not recall the names of them. Does not recall the name of her former psychiatrist. Does not have a PCP in [facility]. She said it would be okay for me to call her mother to determine the names of the medications. Review of Systems Review of Systems: All systems reviewed & are unremarkable except as noted in Subjective Constitutional: no fever, no chills and no malaise Respiratory: no cough and no dyspnea Cardiovascular: no chest pain, no palpitations and no edema Gastrointestinal: + abdominal pain; no nausea and no vomiting Genitourinary: no dysuria and no hematuria Physical Exam Constitutional: WD/WN, vitals as above Eyes: PERRL, conjunctivae normal, anicteric sclerae ENMT: external ear and nose normal, oropharynx normal Neck: normal visual inspection Respiratory: normal respiratory effort, lungs clear to auscultation Cardiovascular: RRR, no murmur, no edema Gastrointestinal (Abdomen): Inspection/Auscultation: normal bowel sounds; abdomen not distended Percussion/Palpation: + abdomen tender (LUQ, LLQ) and abdomen soft; no guarding Musculoskeletal: Extremities: no cyanosis and no clubbing Skin: no rashes, warm and dry Neurologic: moves all extremities; no focal motor deficits AAOx3, normal speech. PERRLA, EOMI, no nystagmus. Normal visual acuity bilaterally. No tremor. Psychiatric: A+Ox3, euthymic affect Results & Data Results & Data ([facility]) Vital Signs (Past 12 Hours) Vital Signs Temp Pulse Pulse Resp BP BP Pulse Ox 12/05/19 11:17 37.0 C 83 20 114/71 100 12/05/19 07:31 85 12/05/19 07:15 37.2 C 89 18 145/67 H 98 12/05/19 03:00 37.2 C 68 16 108/64 98 Resident Activity Tracking Resident Involvement: Resident Care Provided Care Provided: Adult Hospital Medicine
--- NOTE | 2019-12-05 13:01 | Electrocardiogram Report ---
Test Reason : Blood Pressure : / mmHG Vent. Rate : 079 BPM Atrial Rate : 079 BPM P-R Int : 114 ms QRS Dur : 084 ms QT Int : 414 ms P-R-T Axes : 048 048 018 degrees QTc Int : 474 ms Normal sinus rhythm Normal ECG When compared with ECG of 03-DEC-2019 23:33, No significant change was found Confirmed by Edwin Farley ([id number]) on 12/05/2019 1:01:19 PM Referred By: REFERRED SELF Confirmed By:Edwin Farley
[2019-12-05 13:59] LABS: iSTAT Creatinine 0.7 mg/dl (0.6-1.3); iSTAT Hemoglobin 8.2 g/dl (12.0-16.0); iSTAT Ionized Calcium 1.22 mmol/l (1.12-1.32); iSTAT Potassium 3.5 mmol/L (3.3-5.0)
[2019-12-06] MEDS: KETOROLAC TROMETHAMINE 15 MG/ML VIAL IV SCH ×2 (00:12→05:25)
[2019-12-06] MEDS: cefOXitin 2,000 MG in DEXTROSE 5% 50 ML IV SCH ×2 (00:13→05:25)
[2019-12-06] MEDS: DOXYCYCLINE HYCLATE 100 MG in DEXTROSE 5% 100 ML IV SCH (01:39)
[2019-12-06] MEDS: ACETAMINOPHEN 500 MG TAB PO SCH ×3 (05:25→21:53)
--- NOTE | 2019-12-06 07:53 | Gynecologic Progress Note ---
Date of Service December 06, 2019 Assessment & Plan (1) Acute pelvic inflammatory disease (PID): Patient has symptomatic improvement. Given that she has been afebrile since admission and has had symptomatic improvement, I think it is reasonable to switch her over to PO antibiotics - 100mg doxycycline BID x 14 days. No labs available yet at this time for today. Admission and Anticipated Discharge Date Admission Date: December 04, 2019 Subjective 19yo admitted early AM 12/03 with PID. She has been on IV Cefoxitin, doxycycline x 48h. Last fever was upon admission. This morning, she states she is feeling much better. She has been eating/drinking well, ambulating. States the pain has significantly improved. She is hoping to be able to go home. Review of Systems Review of Systems: All systems reviewed & are unremarkable except as noted in Subjective Physical Exam Physical Exam: Gen: AAO x3 NAD Abd: soft, NTTP. Nondistended. Ext: no edema . Results & Data ([facility]) Vital Signs (Past 12 Hours) Vital Signs Temp Pulse Pulse Resp BP Pulse Ox 12/06/19 07:18 37.0 C 61 18 121/61 100 12/06/19 03:39 36.7 C 82 16 122/63 98 12/06/19 00:58 84 12/05/19 22:16 37.6 C H 82 18 110/56 L 98
[2019-12-06] MEDS: MAGNESIUM OXIDE 400 MG TAB PO SCH (07:56)
[2019-12-06 08:42] LABS: Hematocrit (blood only) 27.5 % (37-47); Hemoglobin 7.8 g/dL (12.0-16.0); Mean Corpuscular Hgb Conc 28.4 g/dL (32-36); Mean Corpuscular Volume 63.4 fL (80-100); Mean Platelet Volume 9.5 fL (7.4-10.4); Platelet Count 390 K/uL (130-400); RDW Coefficient of Variation 24.5 % (11.5-14.5); RDW Standard Deviation 54.3 fL (36.4-46.3); Red Blood Count 4.34 M/uL (4.2-5.4); White Blood Count 15.37 K/uL (4.8-10.8)
[2019-12-06 08:44] LABS: INR 1.2 (0.9-1.1); Prothrombin Time 12.1 Seconds (9.0-12.0)
[2019-12-06 09:08] LABS: Anisocytosis Present; Basophils # (auto) 0.01 K/uL (0-0.2); Basophils % (auto) 0.1 %; Eosinophils # (auto) 0.12 K/uL (0-0.5); Eosinophils % (auto) 0.8 %; Hypochromasia Present; Immature Granulocytes # (auto) 0.07 K/uL (0.00-0.02); Immature Granulocytes % (auto) 0.5 %; Lymphocytes # (auto) 2.37 K/uL (1.2-3.4); Lymphocytes % (auto) 15.4 %; Microcytosis Present; Monocytes # (auto) 1.45 K/uL (0.11-0.59); Monocytes % (auto) 9.4 %; Neutrophils # (auto) 11.35 K/uL (1.4-6.5); Neutrophils % (auto) 73.8 %; Polychromasia 1+
[2019-12-06 09:15] LABS: BUN Creatinine Ratio 11.4 (10-20); Calcium 8.9 mg/dl (8.5-10.1); Creatinine Clr Calc Pharmacy 122.4 ml/min; Est GFR (Non-African American) 112.1; Potassium 3.4 mmol/L (3.5-5.1)
--- NOTE | 2019-12-06 12:06 | Gynecologic Progress Note ---
Date of Service December 06, 2019 Assessment & Plan Admission and Anticipated Discharge Date Admission Date: December 04, 2019 I have switched her to po doxycycline 100mg bid to be taken for total of 14 days. She should be observed inpatient for the next 24 hours to be sure there is no fever or increase in WBC count as a result of stopping the CEfoxitin and switching to oral doxycyline. After discussing options for viable control that will control her periods, she feels she is able to take a control pill daily to control her periods . She understands if she is unable to take it daily that her heavy bleeding will return and be more frequent. Her period is due in about 2 weeks. I will send a script for a 30mcg dose BCP to the pharmacy in [place] of her choosing. She is to start the pill with her next period and follow up with us in 2-3 months to see how it is controlling her bleeding. She states that she needs to go back to [place] later this month but plans to return to [place]. I stressed to her the importance of not getting at time due to multiple factors including an in creased risk of ectopic which she understands could be fatal. We will assess WBC count in the AM prior to recommending discharge. Subjective Patient now with much less pelvic pain controlled with po tylenol. WBC count is now down to 15,000. She continues to be afebrile. I had a more in depth discussi on about her menstrual periods as her anemia is profound considering her age. She states that her periods are regular but has bleeding that is heavy for 7 days. Sometimes followed by a few days of spotting. She had difficulty quantifying how often she would change the pad & tampon combination she needs to use, but thinks sometimes every 30 minutes at times. She states they have always been this heavy. She had fazal placed on Depoprovera for 6 months which stopped her bleeding but she was late getting her scheduled injection, then bled for 10 months almost every day. Other providers recommended Mirena IUD but she does not feel comfortable with this option. She states prior provider wanted to a surgery but she is not sure why and what type. She is hoping to have children some day ("at least one"), but understands that is not a reasonable choice right now. Review of Systems Review of Systems: All systems reviewed & are unremarkable except as noted in HPI & below Physical Exam Constitutional: WD/WN, vitals as above Psychiatric: A+Ox3, euthymic affect Results & Data ([facility]) Vital Signs (Past 12 Hours) Vital Signs Temp Pulse Pulse Resp BP Pulse Ox 12/06/19 11:18 97.7 F 59 L 18 115/55 L 100 12/06/19 07:18 98.6 F 61 18 121/61 100 12/06/19 03:39 98.1 F 82 16 122/63 98 12/06/19 00:58 84 PG Care Time/CCT Total # of Minutes Spent Total Time Spent with Patient: Total time spent is greater than 50% in coordination of care (as documented) at patient's floor/unit and/or counseling patient: Coding Level of Care Code 45734 Inpt Consult Level 3
[2019-12-06 14:32] LABS: Chlamydia Trach RNA NOT DETECTED (NOT DETECTED); GC (Neis gonorrhoeae) RNA DETECTED (NOT DETECTED)
[2019-12-06 14:39] LABS: Hematocrit (blood only) 27.3 % (37-47); Hemoglobin 7.6 g/dL (12.0-16.0)
--- NOTE | 2019-12-06 17:04 | Hospitalist Progress Note ---
Date of Service December 06, 2019 Assessment & Plan (1) Acute pelvic inflammatory disease (PID): Pt is a 19yo with a PMHx of bilateral ovarian cysts and drug abuse admitted for abdominal pain and fever of Tmax 39.2, with concern for PID. Pelvic Inflammatory Disease: - Pt on admission with 4 day Hx of abd pain, associated with fevers and nausea. Notes high risk sexual behavior. - In ER with yellow-white discharge in vaginal vault, erythematous cervix, with cervical motion tenderness and right adnexal tenderness. - Temp 39.2 on admission, WBC >17,000, Hgb of 6.4 with MCV of 58.7, urine negative. - CT abdomen/pelvis noted some complex free fluid and mild thickening of the pel robi small bowel, mild splenomegaly. - Pelvic US showed normal uterus and endometrial complex, R ovary complex hemorrhagic cyst and follicular changes in L ovary. - HIV negative, GC/CL and syphilis serology pending. - Trichomonas cervical swab negative, cervical gram stain and culture positive for Gardnerella vaginalis and Anabel species. - Blood cultures negative to date. - WBC downtrended today from 20.02 to 15.37 today. - Received IM ceftriaxone x1, doxy, flagyl in ED. - For 48 hours was on Cefoxitin 2g Q6H + Doxy 100 IV Q12H for empiric treatment of PID. - Transitioned to PO doxycycline 100mg BID this afternoon. - [employer] consult, appreciate recommendations: - Monitor CBC tomorrow AM, for discharge tomorrow if symptoms continue to improve and patient's labwork is reassuring. Iron deficiency anemia: - Hgb of 6.4 noted on admission with MCV of 58. - Patient notes long-standing history of menorrhagia, and was advised in the past to take OCP in order to better regulate and shorten her cycles but was lost to follow up. - 2U of pRBCs ordered for transfusion by the ED. - Repeat H/H following 2U was 8.3, stable today at 7.6. - Iron level low, ferritin and TIBC normal. - Received Venofer while admitted, will start iron supplementation on discharge. - Discussed starting OCP to help regulate heavy periods; [employer] will send prescription prior to discharge. - Patient's maternal uncle has a history of Yzrir-[id number]-[id number] syndrome. Hemoccult ordered for patient while admitted; warrants further workup in the outpatient setting given anemia on admission. History of Bipolar Disorder/?schizophrenia: - Patient reports having been on "some medications off and on" but cannot recall names. - At patient's consent, called mother who will look in her records and get back to me. - Patient reports that over next several weeks she will be going back and forth from [place] to [facility] to collect her things from her former residence in [place]. - Have given patient my information for discharge, to establish care and follow up on her symptoms. Hx of drug abuse, tobacco abuse: - Pt states she moved from [place] about 6 weeks ago to "get away" from using meth and acid. - Patient displayed off affect over the weekend per team, while un-named male (her boyfriend) was present in the room. - Euthymic today and has not left her room. - Admits to marijuana use. - Smokes 1 ppd since age 13. - Encouraged continued abstinence from recreational drugs, smoking cessation counseling. Hypomagnesemia - Mag of 1.7 on admission. - Mag ox 400mg qAM ordered. Elevated INR: - Noted INR of 1.2 incidentally on admission labwork, which was still elevated to 1.2 on repeat labwork. - Normal AST, ALT, Alk Phos, T bili. FEN/GI: low fiber diet DVT prophylaxis: Ambulation as tolerated CODE STATUS: Full Dispo: Med/Surg for symptom monitoring overnight and morning CBC (2) Iron deficiency anemia: (3) Hypomagnesemia: Admission and Anticipated Discharge Date Admission Date: December 04, 2019 Supervising Physician Co-Signing Physician Notes Resident Physician Supervision Note: I independently interviewed and examined the patient and verified the perkins history and physical, reviewed labs and image studies, discussed the case with the resident Dr. Talbot and agree with the findings and care plan. Subjective Patient without acute events overnight. No more nausea, and pain has been well controlled on scheduled Tylenol. Pain is isolated now to suprapubic and LLQ areas of her abdomen. No subjective fevers or chills. No chest pain or SOB, no constipation or diarrhea. Review of Systems Review of Systems: All systems reviewed & are unremarkable except as noted in Subjective Constitutional: no fever, no chills and no malaise Respiratory: no cough and no dyspnea Cardiovascular: no chest pain, no palpitations and no edema Gastrointestinal: + abdominal pain; no nausea and no vomiting Genitourinary: no dysuria and no hematuria Physical Exam Constitutional: WD/WN, vitals as above Eyes: PERRL, conjunctivae normal, anicteric sclerae ENMT: external ear and nose normal, oropharynx normal Neck: normal visual inspection Respiratory: normal respiratory effort, lungs clear to auscultation Cardiovascular: RRR, no murmur, no edema Gastrointestinal (Abdomen): Inspection/Auscultation: normal bowel sounds; abdomen not distended Percussion/Palpation: + abdomen tender (LLQ) and abdomen soft; no guarding Musculoskeletal: Extremities: no cyanosis and no clubbing Skin: no rashes, warm and dry Neurologic: moves all extremities; no focal motor deficits AAOx3, normal speech. PERRLA, EOMI, no nystagmus. Normal visual acuity bilaterally. No tremor. Psychiatric: A+Ox3, euthymic affect Results & Data Results & Data ([facility]) Vital Signs (Past 12 Hours) Vital Signs Temp Pulse Pulse Resp BP Pulse Ox 12/06/19 15:25 36.7 C 68 18 115/63 98 12/06/19 14:52 93 H 12/06/19 11:18 36.5 C 59 L 18 115/55 L 100 12/06/19 07:18 37.0 C 61 18 121/61 100 Resident Activity Tracking Resident Involvement: Resident Care Provided Care Provided: Adult Hospital Medicine
[2019-12-06] MEDS: DOXYCYCLINE HYCLATE 100 MG CAP PO SCH (17:21)
[2019-12-06] MEDS ORDERED: hydrOXYzine HCl 25 MG TAB PO PRN (19:36)
[2019-12-07] MEDS: ACETAMINOPHEN 500 MG TAB PO SCH ×2 (05:25→05:48)
--- NOTE | 2019-12-07 07:41 | Gynecologic Progress Note ---
Date of Service December 07, 2019 Assessment & Plan Admission and Anticipated Discharge Date Admission Date: December 04, 2019 doing well so far on po doxycycline if WBC count continues to decline- can be discharged today on po doxycycline bid for 14 days She still does not have name of pharmacy to sent scripts for antibiotic and control pill. I recommend starting a pill like Junel 1.07/15 dose to start the Thursday after her next period. she should be seen in our office for follow up in 6-8 weeks. She is returning to [place] end of November but will returning to [place] after that. Subjective pain continues to be well controlled. no other concerns this morning since being switched to po doxycycline. Review of Systems Review of Systems: All systems reviewed & are unremarkable except as noted in HPI & below Physical Exam Constitutional: WD/WN, vitals as above Gastrointestinal (Abdomen): normal bowel sounds, soft, nontender, no hepatosplenomegaly minimal tenderness suprapubic area- no rebound Psychiatric: A+Ox3, euthymic affect PG Care Time/CCT Total # of Minutes Spent Total Time Spent with Patient: Total time spent is greater than 50% in coordination of care (as documented) at patient's floor/unit and/or counseling patient: Coding Level of Care Code 72207 Subseq Hosp Care Lvl 2
[2019-12-07 08:32] LABS: Marijuana Quant, GCMS Urine 495 ng/mL (<5)
[2019-12-07 08:38] LABS: Hematocrit (blood only) 27.7 % (37-47); Hemoglobin 7.7 g/dL (12.0-16.0); Mean Corpuscular Hemoglobin 17.9 pg (25-34); Mean Corpuscular Hgb Conc 27.8 g/dL (32-36); Mean Corpuscular Volume 64.3 fL (80-100); Mean Platelet Volume 9.2 fL (7.4-10.4); Nucleated RBC # (auto) 0.03 K/uL (0-0); Nucleated RBC % (auto) 0.2 %; Platelet Count 393 K/uL (130-400); RDW Coefficient of Variation 25.9 % (11.5-14.5); RDW Standard Deviation 57.1 fL (36.4-46.3); Red Blood Count 4.31 M/uL (4.2-5.4); White Blood Count 11.04 K/uL (4.8-10.8)
[2019-12-07] MEDS: MAGNESIUM OXIDE 400 MG TAB PO SCH (09:07)
[2019-12-07] MEDS: DOXYCYCLINE HYCLATE 100 MG CAP PO SCH (09:07)
[2019-12-07 09:28] LABS: Anisocytosis Present; Basophils # (auto) 0.02 K/uL (0-0.2); Basophils % (auto) 0.2 %; Eosinophils # (auto) 0.11 K/uL (0-0.5); Immature Granulocytes # (auto) 0.14 K/uL (0.00-0.02); Immature Granulocytes % (auto) 1.3 %; Lymphocytes % (auto) 20.8 %; Microcytosis Present; Monocytes # (auto) 0.84 K/uL (0.11-0.59); Monocytes % (auto) 7.6 %; Neutrophils # (auto) 7.63 K/uL (1.4-6.5); Neutrophils % (auto) 69.1 %; Ovalocytes 1+; Polychromasia 1+
--- NOTE | 2019-12-07 09:35 | Discharge Summary ---
Date of Service December 07, 2019 Admission HPI Per Admitting Provider Pt is a 19yo with a PMHx of bilateral ovarian cysts and drug abuse who presents with a 4 day history of lower abdominal pain and fever as high as 39.2. She states that the pain is mostly localized to the lower abdomen, but started as back pain. It is associated with nausea. Has also been having some white- yellowish discharge, denies any odor. Recently had her period. Last sexual encounter was a week ago. States that she moved to the [place] area to live with her uncle to get away from a Hx of drug abuse. States her drug of choice was methamphetamines, sometimes acid and daily marijuana which she still uses here. Also moved with her boyfriend of about 6 weeks who recently got out of custodial and whom she states "shoots" up. She is sexually active with him only since she moved to [place] about 6 weeks ago but she does not use protection. States she was sexually active with another partner right before moving to [place] 6 weeks ago and did not use protection then either. Is currently not on control. PMHx: Hx of bilateral ovarian cysts that she states ruptured about a year ago, at the same time PSH: None (was supposed to have cyst related surgery but states she never presented to have it done) Fam Hx: Ovarian cancer in aunt and grandmother Allergies: NKDA SH: Smoked 1ppd since age 13, periodic alcohol drinks, recreational drug use of daily marijuana. Hx of meth abuse and "acid" use. Lives with Uncle in [facility]. Recently moved from [place], where she used to attend school. Does not work currently. Her partner also abuses drugs, though she states she brought him to [facility] to help him abstain from use as well. Admission Exam Per Admitting Provider General: Alert, oriented. No acute distress, laying in bed Skin: Tattoes noted Psych: Appropriate mood and affect Neuro: No gross deficits HEENT: NC/AT Chest: Nontender to palpation. CV: RRR, Normal s1, s2. No murmurs appreciated Resp: Breath sounds clear bilaterally, no increased effort of breathing. Abdomen: Soft, tender diffusely, nondistended. Some guarding. Extremities: No edema in lower extremities bilaterally. Principal Diagnosis pelvic inflammatory disease 2/2 gonorrhea Discharge Exam Constitutional WD/WN, vitals as above Neck normal visual inspection Respiratory normal respiratory effort, lungs clear to auscultation Cardiovascular RRR, no murmur, no edema Gastrointestinal (Abdomen) Inspection/Auscultation: normal bowel sounds; abdomen not distended Percussion/Palpation: + abdomen tender (mildly to RLQ) and abdomen soft; no guarding Musculoskeletal no cyanosis or clubbing, extremities motor strength 5/5 Skin no rashes, warm and dry Psychiatric A+Ox3, euthymic affect Discharge Data Allergies Allergy/AdvReac Type Severity Reaction Status Date / Time No Known Allergies Allergy Unverified 12/03/19 23:29 Consultations 12/04/19 00:44 ED Decision to Admit Stat 12/04/19 02:36 Consult Gynecology Routine Ordered Studies 12/03/19 23:13 CT abd pelvis IV con only Urgent 12/04/19 00:07 US pelvic complete Urgent Hospital Course (1) Acute pelvic inflammatory disease (PID): Pt is a 19yo with a PMHx of bilateral ovarian cysts and drug abuse admitted for abdominal pain and fever of Tmax 39.2, with concern for PID. Pelvic Inflammatory Disease: - Pt on admission with 4 day Hx of abd pain, associated with fevers and nausea. Notes high risk sexual behavior. - In ER with yellow-white discharge in vaginal vault, erythematous cervix, with cervical motion tenderness and right adnexal tenderness. - Temp 39.2 on admission, WBC >17,000, Hgb of 6.4 with MCV of 58.7, urine negative. - CT abdomen/pelvis noted some complex free fluid and mild thickening of the pelvic small bowel, mild splenomegaly. - Pelvic US showed normal uterus and endometrial complex, R ovary complex hemorrhagic cyst and follicular changes in L ovary. - HIV negative, syphilis negative, chlamydia negative, gonorrhea serology and cervical culture positive. - Trichomonas cervical swab negative, cervical gram stain and culture positive for Gonorrhea, Gardnerella vaginalis, and Anabel species. - Blood cultures negative. - WBC downtrended today from 20.02 -> 15.37 -> 11 today. - Received IM ceftriaxone x1, doxy, flagyl in ED. - For 48 hours was on Cefoxitin 2g Q6H + Doxy 100 IV Q12H for empiric treatment of PID. - Transitioned to PO doxycycline 100mg BID, and will continue for 14 more days following discharge. - Subsorter consult, appreciate recommendations: - Advised patient to inform partner of her gonorrhea positive status so that he can be treated as well. Iron deficiency anemia: - Hgb of 6.4 noted on admission with MCV of 58. - Patient notes long-standing history of menorrhagia, and was advised in the past to take OCP in order to better regulate and shorten her cycles but was lost to follow up. - 2U of pRBCs ordered for transfusion by the ED. - Repeat H/H following 2U was 8.3, stable today at 7.7. - Iron level low, ferritin and TIBC normal. - Received Venofer while admitted, and started on iron supplementation on discharge. - Discussed starting OCP to help regulate heavy periods as above. - Patient's maternal uncle has a history of Hoxig-Fmhxd-Bgwbv syndrome. Hemoccult ordered for patient while admitted but not collected; warrants further workup in the outpatient setting given anemia on admission. - Subsorter input - Have started on control for menorrhagia History of Bipolar Disorder/?schizophrenia: - Patient reports having been on "some medications off and on" but cannot recall names. - Patient reports that over next several weeks she will be going back and forth from [place] to [facility] to collect her things from her former residence in [place]. - Have given patient my information for discharge, to establish care and follow up on her symptoms and previous medication use. Hx of drug abuse, tobacco abuse: - Pt states she moved from [place] about 6 weeks ago to "get away" from using meth and acid. - Patient displayed off affect over the weekend per team, while un-named male (her boyfriend) was present in the room. - Euthymic today and has not left her room. - Admits to marijuana use. - Smokes 1 ppd since age 13. - Encouraged continued abstinence from recreational drugs, smoking cessation counseling. Hypomagnesemia - replaced Elevated INR: - Noted INR of 1.2 incidentally on admission labwork, which was still elevated to 1.2 on repeat labwork. - Normal AST, ALT, Alk Phos, T bili. Total Time Total Time Spent Total Time Spent (In Minutes): see attending attestation Discharge Plan Discharge Items Patient Disposition: Home - Self-Care Reason For Visit: PID Discharge Diagnosis: PID Condition on Discharge: Good Activity: Per Instructions section Sexual Activity: After two weeks Non-emergency contact: Primary Care Provider Call non-emergency contact if: you have any medication questions, your pain is worsening and your temperature is above 101 Follow-up/Referrals: Camila Singh MD, FACOG [Physician] - 01/18/20 9:00 am (follow up 6-[address] GUPTA) Kim Talbot DO [Resident] - 12/15/19 7:50 am (For establish care and hospital follow up) Diet: Regular Addtl Attending Provider Instructions: You were admitted to the hospital for abdominal pain and found to have an infection called pelvic inflammatory disease. You were treated with antibiotics through an IV. You will be contacted regarding contact tracing. You were also found to have a very low blood count, and labwork that suggested low iron levels. We gave you two units of blood, as well as an iron infusion to help increase your blood count. You will go home on an iron supplement that you should take daily to build up your blood supply. We started you on a control pill called Julyl. You should start taking that the Thursday after your next period. You were sent with an antibiotic called doxycycline. You should take one doxycycline pill every 12 hours until the pills are gone. These prescriptions were sent to the [facility] in [facility]. Please call my office to schedule a follow up to go over your medical history and to establish care in my office. You will be scheduled for follow up with Gynecology in 6-8 weeks. Because your uncle has a history of Zhzad-Bvdqw-Sijmc syndrome, you should be worked up for this by a doctor, as this can cause anemia. Pending Studies at Discharge: No Stand-Alone Forms: My [facility], Smoking Cessation Medications and DC Order Prescriptions: New doxycycline hyclate 100 mg Capsule 100 mg PO BID 14 Days Qty: 28 RF: 0 ferrous sulfate [iron] 325 mg (65 mg iron) tablet 325 mg PO DAILY Qty: 30 RF: 0 norethindrone ac-eth estradiol [ ()] 1.5-30 mg-mcg tablet 1 tab PO DAILY Qty: 63 RF: 0 No Action No Known Home Medications RF: 0 Discharge Orders: Discharge Order (Routine); Ordered 12/07/19 Ordered By: Kim Talbot Admission Data Admit Date/Time: 12/04/19 01:46 Attending Provider: Susan Blum Admit Provider: Hien Ya Primary Care Provider: PCP,NO Other Providers: Gemma Bolton ; Neno Joseph ; Nicolas Garcia ; Toni Gupta Other Interventions: Discharge Summary Assessment (RN) Last Done: 12/07/19 10:20 Supervising Physician Co-Signing Physician Notes Resident Physician Supervision Note: I independently interviewed and examined the patient and verified the perkins history and physical, reviewed labs and image studies, discussed the case with the resident Dr. Talbot and agree with the findings and care plan. Resident Activity Tracking Resident Involvement: Resident Care Provided Care Provided: Adult Hospital Medicine
== END 2019-12-07 10:52 | disposition home or self-care (01) | DRG 758 ==
LOC: ED 22:55 → 2W 12-04 01:46 → SUATTDRO 12-04 01:46 → 2W 12-04 02:25